=== PATIENT | female | born 2000 | race African-American/Black ===

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

== ENCOUNTER 2023-08-13 21:39 | Emergency (ER) | payer MEDICAID ==
[2023-08-13 21:43] VITALS: BP 135/93
[2023-08-13 21:46] VITALS: BP 133/84
[2023-08-13 22:08] VITALS: BP 133/84
== END 2023-08-13 22:09 | disposition home or self-care (01) ==
LOC: ED 21:39
DX: G40.909 Epilepsy, unspecified, not intractable, without status epilepticus (principal)